=== PATIENT | female | born 1995 | race Hispanic/Latino ===

== ENCOUNTER 2018-08-15 02:57 | Emergency (ER) | payer BC ==
[2018-08-15] MEDS ORDERED: Metoclopramide HCl 10 MG/2 ML VIAL ONE (03:14)
[2018-08-15] MEDS ORDERED: diphenhydrAMINE 50 MG/ML VIAL ONE (03:14)
[2018-08-15] MEDS ORDERED: Metoclopramide HCl 10 MG TAB ONE (03:14)
[2018-08-15] MEDS ORDERED: Ketorolac Tromethamine 30 MG/ML VIAL ONE (03:15)
[2018-08-15 03:42] LABS: #Basophils 0.1 thou/uL (0.0-0.2); #Eosinphils 0.3 thou/uL (0.0-0.7); #Lymphocytes 1.8 thou/uL (1.20-3.40); #Monocytes 0.5 thou/uL (0.11-0.59); #Neutrophils 4.1 thou/uL (1.40-6.50); %Basophils 0.8 % (0.0-1.0); %Eosinophils 4.1 % (0.0-10.0); %Lymphocytes 26.5 % (21.0-51.0); %Monocytes 7.7 % (0.0-10.0); %Neutrophils 60.8 % (42.0-75.0); Hemoglobin 11.9 g/dL (12.0-16.0); Mean Corpuscular HGB CONC 33.2 g/dL (32.0-36.0); Mean Corpuscular Hemoglobin 27.3 pg (27.0-31.0); Mean Corpuscular Volume 82.2 fL (78.0-98.0); Mean Platelet Volume 7.9 fL (7.4-10.4); Platelet Count 193 thou/uL (130-400); RBC Distribution Width 11.3 % (11.5-14.5); Red Blood Cell (RBC) Count 4.35 mill/uL (4.20-5.40); White Blood Cell (WBC) Count 6.8 thou/uL (4.8-10.8)
[2018-08-15 03:43] LABS: BHCG - Serum Negative (NEGATIVE); Pregs Control Background? CLEAR/WHITE (CLR/WHITE); Pregs Control Bar Appear? YES (CONTROL BAR)
== END 2018-08-15 04:52 | disposition home or self-care (01) ==
LOC: SCSER 02:57
DX: R51 Headache (principal); F32.9 Major depressive disorder, single episode, unspecified; Z79.899 Other long term (current) drug therapy
CPT/HCPCS: 36415; 84703; 85025; 85652; 86140; 96361; 96374; 96375; J1200; J1885; J2765